=== PATIENT | female | born 1970 | race Hispanic/Latino ===

== ENCOUNTER 2018-01-03 22:04 | Emergency (ER) | payer SELFPAY ==
[2018-01-03 22:15] VITALS: O2SAT 100; BMI 20.3
[2018-01-03] MEDS ORDERED: Sodium Chloride 0.9% 1,000 ML IV STA (22:39)
--- NOTE | 2018-01-03 22:42 | ED PDOC ---
Arrival/HPI <Tamir Mo - Last Filed: 01/03/18 23:12> - General Historian: Patient - History of Present Illness Time/Duration: Other (see hpi) Context: Other (homeless) <Barbara Longo - Last Filed: 01/04/18 01:48> - General Chief Complaint: Weakness/Neurological Deficit Time Seen by Provider: 01/03/18 22:33 - History of Present Illness Narrative History of Present Illness (Text): 01/03/18 22:39 This 47 yo female, homeless with pmh anemia, presents to this ED c/o chronic fatigue, dizziness for a few years. Patient stated she was Dx. with anemia, and getting blood transfusion x 3-4 months ago. Denies alcohol abuse, illegal drug use, sob, cp, abdominal pain, rectal bleeding, hematuria, fever or abnormal gait. (Barbara Longo) Past Medical History - Provider Review Nursing Documentation Reviewed: Yes - Infectious Disease Hx of Infectious Diseases: None - Neurological Hx Dizziness: Yes - Hematological/Oncological Hx Anemia: Yes Hx Blood Transfusions: Yes (hx of 5 transfusions. Last one was 10/07) Hx Blood Transfusion Reaction: No - Psychiatric Hx Substance Use: No - Surgical History Hx Cholecystectomy: Yes - Anesthesia Hx Anesthesia: Yes Hx Anesthesia Reactions: No Hx Malignant Hyperthermia: No <Barbara Longo - Last Filed: 01/04/18 01:48> Family/Social History - Physician Review Nursing Documentation Reviewed: Yes Family/Social History: Other (noncontributory) Smoking Status: Never Smoked Hx Alcohol Use: No Hx Substance Use: No <Barbara Longo - Last Filed: 01/04/18 01:48> Allergies/Home Meds <Tamir Mo - Last Filed: 01/03/18 23:12> <Barbara Longo - Last Filed: 01/04/18 01:48> Allergies/Adverse Reactions: Allergies No Known Allergies Allergy (Verified 01/03/18 22:30) Home Medications: Home Meds Medication Instructions Recorded Confirmed No Known Home Med 01/03/18 01/03/18 Review of Systems - Review of Systems Constitutional: Normal. absent: Fatigue, Weight Change, Fevers Eyes: Normal ENT: Normal Respiratory: Normal Cardiovascular: Normal Gastrointestinal: Normal Genitourinary Female: Normal Musculoskeletal: Normal Skin: Normal Neurological: Dizziness. absent: Headache, Focal Weakness, Gait Changes, Speech Changes, Facial Droop, Disequilibrium Endocrine: Normal Hemo/Lymphatic: Normal Psychiatric: Normal, Other (denies alcohol or illegal drug abuse). absent: Anxiety, Depression, Suicidal Ideation <Barbara Longo - Last Filed: 01/04/18 01:48> Physical Exam Temperature: Afebrile Blood Pressure: Normal Pulse: Regular Respiratory Rate: Normal Appearance: Positive for: Well-Appearing, Non-Toxic, Comfortable Pain Distress: None Mental Status: Positive for: Alert and Oriented X 3 - Systems Exam Head: Present: Atraumatic, Normocephalic Pupils: Present: PERRL Extroacular Muscles: Present: EOMI Conjunctiva: Present: Normal Mouth: Present: Moist Mucous Membranes Neck: Present: Normal Range of Motion Respiratory/Chest: Present: Clear to Auscultation, Good Air Exchange. No: Respiratory Distress, Accessory Muscle Use Cardiovascular: Present: Regular Rate and Rhythm, Normal S1, S2. No: Murmurs Abdomen: No: Tenderness, Distention, Peritoneal Signs, Rebound, Guarding Back: Present: Normal Inspection Upper Extremity: Present: Normal Inspection, Normal ROM. No: Cyanosis, Edema Lower Extremity: Present: Normal Inspection, Normal ROM. No: Edema Neurological: Present: GCS=15, CN II-XII Intact, Speech Normal, Motor Func Grossly Intact, Normal Sensory Function, Normal Cerebellar Funct, Gait Normal, Memory Normal Skin: Present: Warm, Dry, Normal Color. No: Rashes Psychiatric: Present: Alert, Oriented x 3, Normal Insight, Normal Concentration. No: Suicidal Ideation, Homicidal Ideation, Delusional, Hallucinations, Intoxicated <Barbara Longo - Last Filed: 01/04/18 01:48> Vital Signs Temp Pulse Resp BP Pulse Ox 01/03/18 22:12 98.3 F 66 18 104/59 L 100 Medical Decision Making <Tamir Mo - Last Filed: 01/03/18 23:12> Re-evaluation Time: 01:46 Reassessment Condition: Re-examined, Improved - Lab Interpretations I have reviewed the lab results: Yes Interpretation: No clinic. lab abnormalty <Barbara Longo - Last Filed: 01/04/18 01:48> ED Course and Treatment: 01/04/18 01:45 Re-evaluation. Patient feels better. Discussed results and plan with patient who expresses understanding. All questions answered and there is agreement with the plan to discharge home with instructions. Patient stable for discharge. Return if symptoms persist or worsen. Patient was recommended to f/u clinic for further evaluation of chronic anemia. To return to emergency if symptoms worsen. (Barbara Longo) - Lab Interpretations Lab Results: 01/03/18 22:52 01/03/18 22:52 Lab Results 01/04/18 01:16: Urine Color Yellow, Urine Appearance Clear, Urine pH 6.0, Ur Specific [place] >= 1.030, Urine Protein Negative, Urine Glucose (UA) Negative, Urine Ketones Trace H, Urine Blood Negative, Urine Nitrate Negative, Urine Bilirubin Negative, Urine Urobilinogen 0.2, Ur Leukocyte Esterase Negative 01/03/18 22:52: Sodium 141, Potassium 3.9, Chloride 102, Carbon Dioxide 29, Anion Gap 14, BUN 18, Creatinine 0.9, Est GFR ( Amer) > 60, Est GFR (Non- Af Amer) > 60, Random Glucose 63 L, Calcium 9.3, Total Bilirubin 0.2, AST 25, ALT 32, Alkaline Phosphatase 57, Total Protein 6.6, Albumin 3.9, Globulin 2.7, Albumin/Globulin Ratio 1.5 01/03/18 22:52: WBC 5.0, RBC 4.28, Hgb 9.9 L, Hct 33.0 L, MCV 77.1 L, MCH 23.1 L , MCHC 30.0 L, RDW 18.8 H, Plt Count 317, MPV 10.7, Gran % 47.4 L, Lymph % (Auto ) 31.1, [place] % (Auto) 15.7 H, Eos % (Auto) 5.0, Baso % (Auto) 0.8, Gran # 2.36, Lymph # (Auto) 1.6, [place] # (Auto) 0.8 H, Eos # (Auto) 0.3, Baso # (Auto) 0.04 - Medication Orders Current Medication Orders: Discontinued Medications Sodium Chloride (Sodium Chloride 0.9%) 1,000 mls @ 999 mls/hr IV .Q1H1M STA Stop: 01/03/18 23:39 Last Admin: 01/03/18 22:58 Dose: 999 mls/hr eMAR Start Stop Document 01/03/18 22:58 IT (Rec: 01/03/18 22:58 IT [id number]) Intravenous Solution Start Date 01/03/18 Start Time 22:58 End Date 01/03/18 - PA / PATIENT SUPPORT REPRESENTATIVE / Resident Statement / has reviewed & agrees with the documentation as recorded. <Tamir Mo - Last Filed: 01/03/18 23:12> Disposition/Present on Arrival <Tamir Mo - Last Filed: 01/03/18 23:12> - Present on Arrival Any Indicators Present on Arrival: No History of DVT/PE: No History of Uncontrolled Diabetes: No Urinary Catheter: No History of Decub. Ulcer: No History Surgical Site Infection Following: None - Disposition Have Diagnosis and Disposition been Completed?: Yes Disposition Time: 01:46 Patient Plan: Discharge <Barbara Longo - Last Filed: 01/04/18 01:48> - Disposition Diagnosis: Mild chronic anemia Disposition: HOME/ ROUTINE Condition: GOOD Additional Instructions: Call clinic for follow up visit in 1-2 days. Return to emergency if symptoms worsen. Referrals: [facility] [Outside] - Follow up with primary [facility] [Outside] - Follow up with primary Forms: [employer] (Slovenian)
[2018-01-03 23:08] LABS: BASO # 0.04 K/mm3 (0.0-2.0); BASO % 0.8 % (0.0-3.0); EOS # 0.3 (0.0-0.7); GRAN # 2.36 (1.4-6.5); GRAN % 47.4 % (50.0-68.0); HEMOGLOBIN 9.9 g/dL (12.0-16.0); LYMPH # 1.6 (1.2-3.4); LYMPH % 31.1 % (22.0-35.0); MEAN CELL VOLUME 77.1 fl (80.0-105.0); MEAN CORPUSCULAR HEMOGLOBIN 23.1 pg (25.0-35.0); MEAN PLATELET VOLUME 10.7 fl (7.0-11.0); MONO # 0.8 (0.1-0.6); MONO % 15.7 % (1.0-6.0); RBC 4.28 10^6/uL (3.5-6.1); RED CELL DISTRIBUTION WIDTH 18.8 % (11.5-14.5)
[2018-01-03 23:16] LABS: ALB/GLOB RATIO 1.5 (1.1-1.8); ALBUMIN 3.9 g/dL (3.0-4.8); ALT/SGPT 32 U/L (7-56); AST/SGOT 25 U/L (14-36); BLOOD UREA NITROGEN 18 mg/dL (7-21); CALCIUM 9.3 mg/dL (8.4-10.5); GFR AFRICAN-AMERICAN > 60; GFR NON-AFRICAN AMERICAN > 60
[2018-01-04 01:27] LABS: URINE BILIRUBIN NEGATIVE (NEGATIVE); URINE BLOOD NEGATIVE (NEGATIVE); URINE GLUCOSE (UA) NEGATIVE (NEGATIVE); URINE LEUKOCYTE ESTERASE NEGATIVE Leu/uL (NEGATIVE); URINE PROTEIN NEGATIVE mg/dL (<30 mg/dL); URINE UROBILINOGEN 0.2 E.U./dL (<1 E.U./dL)
[2018-01-04 01:41] LABS: URINE APPEARANCE CLEAR (CLEAR); URINE COLOR YELLOW (YELLOW)
[2018-01-04 02:41] VITALS: BP 110/68; PULSE 68; RESP 17; TEMP 98.2
== END 2018-01-04 02:36 | disposition home or self-care (01) ==
LOC: ED 22:04
DX: D64.9 Anemia, unspecified (principal)
CPT/HCPCS: 80053; 81003; 85025; 99285; J7030